=== PATIENT | male | born 1995 | race Caucasian/White ===

== ENCOUNTER 2016-08-04 18:29 | Inpatient (IN) | payer BC, OTHER ==
[~2016-08-04] VITALS: Ht 185.4 cm; Wt 65.8 kg
[2016-08-10] MEDS ORDERED: MIRALAX 17 GM POWD.PACK PO PRN (17:30)
[2016-08-10] MEDS ORDERED: DIAZEPAM 10 MG TABLET PO PRN ×2 (17:30)
[2016-08-10] MEDS ORDERED: CLONIDINE HCL 0.1 MG TABLET PO PRN (17:30)
[2016-08-10] MEDS ORDERED: diphenhydrAMINE 50 MG CAPSULE PO PRN (17:30)
[2016-08-10] MEDS ORDERED: DIAZEPAM 5 MG TABLET PO PRN (17:30)
[2016-08-10] MEDS ORDERED: ACETAMINOPHEN 325 MG TABLET PO PRN (17:30)
[2016-08-10] MEDS ORDERED: LOPERAMIDE HCL 2 MG CAPSULE PO PRN ×2 (17:30)
[2016-08-10] MEDS ORDERED: DICYCLOMINE HCL 20 MG TABLET PO PRN (17:30)
[2016-08-10] MEDS ORDERED: ONDANSETRON ODT 4 MG TAB.RAPDIS SL PRN (17:30)
[2016-08-10] MEDS ORDERED: MAGNESIUM HYDROXIDE 30 ML LIQUID UDC PO PRN (17:30)
[2016-08-10] MEDS ORDERED: ONDANSETRON 4 MG/2 ML VIAL IM PRN (17:30)
[2016-08-10] MEDS ORDERED: BUPRENORPHINE HCL 2 MG TAB.SUBL SL PRN (17:30)
[2016-08-10] MEDS ORDERED: MAG HYDROX/AL HYDROX/SIMETH 30 ML LIQUID UDC PO PRN (17:30)
[2016-08-10] MEDS ORDERED: IBUPROFEN 600 MG TABLET PO PRN (17:30)
[2016-08-10] MEDS ORDERED: METHOCARBAMOL 750 MG TABLET PO PRN (17:30)
[2016-08-10] MEDS ORDERED: LORAZEPAM 2 MG/1 ML VIAL IM PRN (17:30)
[2016-08-10] MEDS ORDERED: HYDROXYZINE PAMOATE 25 MG CAPSULE PO PRN (17:30)
[2016-08-10 18:30] VITALS: BP 131/93
--- NOTE | 2016-08-10 18:30 | NUR ---
Admission Note Pt is a 20 year old male admitted to [facility] on 08/10/2016 for Opiate/Benzo dependence, arrived on the unit at 1830. NKA, denies history of seizures. Pt was able to provide urine drug scree. Upon admission, COWS 5, CIWA 3, BP 131/93, pulse 107, respirations 16, temp 97.4, no reports of pain - rated 0/10, weight 145, height 6'1''. Pt's primary care provider is Dr. Zane Salinas in [place]. Pt denies being hospitalized within the past 30 days. Pt is able to understand and respond to all questions pertaining to his hospitalization. Substance Abuse History is as Follows: 1. Percocet 40mg/daily, last intake on 08/08/2016 of 30mg, at this rate for 3 months, pt has been using since age 16 - for 4 years 2. Hydrocodone 40-100mg/daily, last intake on 08/08/2016 of 50mg, at this rate for 3 months, pt has been using since age 16 - for 4 years 3. Klonopin 1-2mg/daily, last intake on 08/10/2016 of 2mg, at this rate for 3 months, pt has been using since age 16 - for 4 years 4. Xanax 2-4mg/every other day, last intake on 08/08/2016 of 2mg, at this rate for the past year, pt has been using since age 16 - for 4 years 5. Methamphetamine (nasal/smoke) 0.2 - 0.3mg/daily, last intake on 08/09/2016 of 0.2mg, using at this rate for the past 3 months. Pt reports using for the past year 6. Marijuana via smoke - 0.5 - 1g/weekly, last intake of 1gram on 08/07/2016, pt has been using marijuana since age 16. Pt reports his trigger to use is d/t feeling frustrated and irritated with his parents and friends. Pts longest sober period was 7 months in 2016, as reported by pt. Treatment history: [facility] in [place], [place] in 2014 for 7-8 months. Pt reports his father was an alcoholic - is now in recovery and history brother in 2002 d/t driving while intoxicated. Pt stated he is in treatment because, "I want to get clean and live independently". PMH: ADD, anxiety and depression. Pt denies any sx history. Pt did not bring any medications from. Upon assessment, pt is alert/oriented x4, anxious, reports mild body aches, is fidgety, respirations even and unlabored, denies SOB/chest pain, PERRLA. Skin is noted with sweat/clammy, bowel sounds active x4, abdomen soft. Pt denies suicidal ideations. Educational information provided and left at bedside, pt oriented to room and encouraged to notify staff with any concerns. Safety measures in place, call light within reach, side rails up x2, bed locked and in low position. Will continue to monitor.
[2016-08-10 19:05] LABS: BASOPHILS # (AUTO) 0.1 K/uL (0.0-8.0); BASOPHILS % (AUTO) 0.9 % (0.0-2.0); EOSINOPHILS # (AUTO) 0.5 K/uL (0.0-0.7); EOSINOPHILS % (AUTO) 6.7 % (0.0-7.0); HEMATOCRIT 44.3 % (36.7-47.1); HEMOGLOBIN 15.1 g/dL (12.5-16.3); LYMPHOCYTES # (AUTO) 2.6 K/uL (20.0-40.0); LYMPHOCYTES % (AUTO) 38.5 % (20.5-51.5); MEAN CORPUSCULAR HEMOGLOBIN 31.4 uug (23.8-33.4); MEAN CORPUSCULAR HGB CONC 34 g/dL (32.5-36.3); MEAN CORPUSCULAR VOLUME 91.9 fL (73.0-96.2); MONOCYTES # (AUTO) 0.4 K/uL (2.0-10.0); MONOCYTES % (AUTO) 6.1 % (0.0-11.0); NEUTROPHILS # (AUTO) 3.2 K/uL (1.8-8.9); NEUTROPHILS % (AUTO) 47.8 % (38.5-71.5); PLATELET COUNT (AUTO) 208 K/uL (152-348); RED BLOOD CELL COUNT(AUTO) 4.82 MIL/uL (4.06-5.63); RED CELL DISTRIBUTION WIDTH 12.1 % (12.1-16.2); WHITE BLOOD COUNT (AUTO) 6.9 K/uL (3.6-10.2)
[2016-08-10 19:19] LABS: ALANINE AMINOTRANSFERASE 24 U/L (16-63); ALBUMIN 4.4 g/dL (3.4-5.0); ALKALINE PHOSPHATASE 92 U/L (50-136); AMYLASE 67 U/L (25-115); ASPARTATE AMINOTRANSFERASE 18 U/L (15-37); BILIRUBIN,TOTAL 0.4 mg/dL (0.2-1.0); CARBON DIOXIDE 32 mmol/L (21-32); CHLORIDE 103 mmol/L (98-107); CREATININE 1.1 mg/dL (0.6-1.3); GFR 84 mL/min (>60); GLUCOSE 88 mg/dL (74-106); LIPASE 354 U/L (73-393); MAGNESIUM 2.3 mg/dL (1.8-2.4); POTASSIUM 4.1 mmol/L (3.5-5.1); SODIUM SERUM 141 mmol/L (136-145); TOTAL PROTEIN, SERUM 7.6 g/dL (6.4-8.2); UREA NITROGEN, BLOOD 18 mg/dL (7-18)
[2016-08-10 19:21] LABS: ETHANOL < 3 MG/DL (0-0)
[2016-08-10 19:23] LABS: *AMPHETAMINE, URINE POSITIVE (NEGATIVE); *BARBITURATE, URINE NEGATIVE (NEGATIVE); *CANNABINOID, URINE NEGATIVE (NEGATIVE); *COCCAINE, URINE NEGATIVE (NEGATIVE); *OPIATE, URINE NEGATIVE (NEGATIVE); *PHENCYCLIDINE SCREEN,URINE NEGATIVE (NEGATIVE)
[2016-08-10 19:41] LABS: THYROID STIMULATING HORMONE 1.651 mIU/mL (0.358-3.740)
[2016-08-10 19:43] LABS: HIV-1/2 ANTIBODY NON REACTIVE (NONREACTIVE)
[2016-08-10 19:44] LABS: HIV-1 p24 ANTIGEN NON REACTIVE (NONREACTIVE)
[2016-08-10 20:00] VITALS: BP 133/80
[2016-08-10] MEDS: GABAPENTIN 300 MG CAPSULE PO SCH (20:14)
[2016-08-11] VITALS: BP 119/69
--- NOTE | 2016-08-11 | NUR ---
Vital Signs BP 119/69, pulse 95, respirations 12, SpO2 99%, temp 97.5, no reports of pain 0/10 CIWA/COWS deferred d/t pt sleeping - to assess while pt is awake as ordered. Safety measures in place. Will continue to monitor.
--- NOTE | 2016-08-11 04:00 | NUR ---
Pt refused to be woken up for 0400 Vital Signs Encouraged x3, pt continued to refuse. Respirations even and unlabored, no s/s of acute distress noted. HEATHER burdickred d/t pt sleeping - to assess while pt is awake as ordered. Safety measures in place. Will continue to monitor. Addendum: 08/11/16 at 0541 by FABIOLA JAIME RN WENDIE deferred d/t pt sleeping - to assess while pt is awake as ordered.
--- NOTE | 2016-08-11 07:00 | NUR ---
End of Shift Pt is a 20 year old male admitted for Opioid/Benzo dependence, placed on 4 day Valium and 4 day Subutex taper. PMH: ADD, anxiety and depression. NKA, regular diet, fall/seizure precautions - denies hx of seizures and full code. During shift, pt presented with body aches, skin flushed - scheduled Gabapentin administered. No PRNs administered. Pt slept all throughout shift. COWS 5, CIWA 3. Pt is to begin taper treatment today. Pt slept for 8 hours intake of 500 ml PO and voids x1. Safety measures in place, call light within reach, side rails up x2, bed locked and in low position. Endorsed to day shift nurse.
--- NOTE | 2016-08-11 07:40 | NUR ---
Start Of Shift Received Pt A&Ox4 this am. Pt is on a 4 day Valium and a 4 day Subutex taper. Pt states he is feeling anxious stating I feel dope sick pt presented with proximal sweats, a mild headache, flushed face, and nasal stuffiness. RR even and unlabored at 17. Pt did not receive any PRN medications last night per shift leader nurse. Pt slept a total of 8 hours. Last COWS 5 and CIWA 3 per shift leader. Encouraged increase fluids to help facilitate detox. Pt continues to be on fall and seizure precautions. Pt denies any allergies. Side rails up x 2, call light within reach, bed locked in lowest position, will continue to monitor and provide care.
[2016-08-11 08:00] VITALS: BP 118/78
[2016-08-11] MEDS: DIAZEPAM 10 MG TABLET PO SCH ×3 (08:49→21:07)
[2016-08-11] MEDS: GABAPENTIN 300 MG CAPSULE PO SCH ×2 (08:49→21:07)
[2016-08-11] MEDS: BUPRENORPHINE HCL 2 MG TAB.SUBL SL SCH ×3 (08:49→21:09)
[2016-08-11] MEDS: MULTIVITAMINS,THERAPEUTIC TABLET PO SCH (08:49)
[2016-08-11] MEDS ORDERED: TUBERCULIN,PURIF.PROT.DERIV. 5 TU/0.1 ML TEST ID ONE (09:00)
[2016-08-11 12:00] VITALS: BP 124/80
[2016-08-11 16:00] VITALS: BP 129/77
--- NOTE | 2016-08-11 19:07 | NUR ---
End Of Shift Pt is a 20 year old male admitted for Opiate and Benzo dependency. Full code regular diet continues to be on fall and seizure precautions, denies any food or drug allergies. Patient alert and oriented x4, vital signs were stable during shift. Patient compliant with therapeutic plan of care. Patient continues on 5 day Subutex and 5 day Valium taper as ordered, well tolerated, no ASE noted. Patient encouraged adequate PO fluid intake as tolerated. Upon assessment patient presented with c/o chills, dilated pupils, stomach cramps, mild anxiety, mild agitation and barely sweating with his last COWS score of: 5 and CIWA score of: 3 @1600. Detox medication effective at reducing withdrawal symptoms. Patient encouraged to attend group therapies/sessions to learn new coping skills to recent relapse, noted attending and participating, patient denies SI/HI. Pt ate all of his meals his total fluid intake was 0 with 2 void and 0 bowel movement ,no PRN medications were administered during shift. Safety measures in place. Call light kept within reach. Patient endorsed to overnight caregiver nurse, all pertinent information discussed.
[2016-08-11 20:00] VITALS: BP 115/62
--- NOTE | 2016-08-11 20:00 | NUR ---
Start of Shift Pt is a 20 year old male admitted for Opioid/Benzo dependence, placed on 4 day Valium and 4 day Subutex taper. PMH: ADD, anxiety and depression. NKA, regular diet, fall/seizure precautions - denies hx of seizures and full code. Upon assessment, pt presents with a flushed face - moderate sweat noted/skin clammy upon touch, tremors felt upon touch, pt reports lower back ache and aches in lower legs, respirations even and unlabored, denies SOB/chest pain, denies SI/HI. Safety measures in place, call light within reach, side rails up x2, bed locked and in low position. Will continue to monitor.
[2016-08-12] VITALS: BP 104/59
--- NOTE | 2016-08-12 | NUR ---
Vital Signs BP 104/59, pulse 95, respirations 16, SpO2 96%, temp 97.7, no reports of pain 0/10 CIWA/COWS deferred d/t pt sleeping - to assess while pt is awake as ordered. Safety measures in place. Will continue to monitor.
[2016-08-12 04:00] VITALS: BP 96/61
--- NOTE | 2016-08-12 04:00 | NUR ---
Vital Signs BP 96/61, pulse 104, respirations 16, SpO2 99%, temp 97.8, no reports of pain 0/10 CIWA/COWS deferred d/t pt sleeping - to assess while pt is awake as ordered. Safety measures in place. Will continue to monitor.
--- NOTE | 2016-08-12 07:00 | NUR ---
End of Shift Pt is a 20 year old male admitted for Opioid/Benzo dependence, placed on 4 day Valium and 4 day Subutex taper. PMH: ADD, anxiety and depression. NKA, regular diet, fall/seizure precautions - denies hx of seizures and full code. During shift, pt presented with flushed face - moderate sweat noted/skin clammy upon touch, tremors felt upon touch, pt reports lower back ache and aches in lower legs - scheduled taper medications administered, CIWA 4 and COWS 5. No PRN medications administered. Pt slept for 9 hours, intake of 1350 ml PO and voids x1. Safety measures in place, call light within reach, side rails up x2, bed locked and in low poisiton. Endorsed to day shift nurse.
[2016-08-12 08:00] VITALS: BP 113/74
--- NOTE | 2016-08-12 08:09 | NUR ---
START OF SHIFT NOTE Received report from night nurse, 20 year old male admitted for Opioid/Benzo dependence. NKA, regular diet and full code. Pt was placed on 4 day Valium and 4 day Subutex taper. Pt reported PMH ADD, anxiety and depression, Pt denies history of seizures. Pt did not receive any PRN's, slept for 9 hours, Last CIWA-4, COWS-5. Upon assessment, pt presents with mild anxiety, tremors felt upon touch, denies any pain or SOB/chest pain, denies SI/HI. Fall/seizure precautions. Safety measures in place, call light within reach, side rails up x2, bed locked and in low position. Will continue to monitor.
[2016-08-12] MEDS: GABAPENTIN 300 MG CAPSULE PO SCH ×3 (08:52→20:07)
[2016-08-12] MEDS: DIAZEPAM 5 MG TABLET PO SCH ×3 (08:52→16:31)
[2016-08-12] MEDS: MULTIVITAMINS,THERAPEUTIC TABLET PO SCH (08:53)
[2016-08-12] MEDS ORDERED: BUPRENORPHINE HCL 2 MG TAB.SUBL SL SCH ×2 (09:00→15:00)
--- NOTE | 2016-08-12 10:49 | NUR ---
PRN ZOFRAN/BENTYL Pt c/o of nausea, and stomach cramps, non pharmacological intervention ineffective. Pt medicated with PRN Zofran 4mg SL/Bentyl as ordered. Will cont to monitor and reassess the pt.
--- NOTE | 2016-08-12 11:19 | NUR ---
PRN ZOFRAN Pt c/o of nausea, non pharmacological intervention ineffective. Pt medicated with PRN Zofran 4mg SL as ordered. Will cont to monitor and reassess the pt. Addendum: 08/12/16 at 1515 by TOVA DOMÍNGUEZ LVN ERROR -Pt did not receive second dose
--- NOTE | 2016-08-12 11:19 | NUR ---
REASSESSMENT Upon reassessment pt reported medication effective nausea subside.
--- NOTE | 2016-08-12 11:49 | NUR ---
CLAUDY REASSESSMENT Pt reported medication effective and stomach cramps decreased.
[2016-08-12 12:00] VITALS: BP 121/78
[2016-08-12 14:12] LABS: HCV AB <0.1 s/co ratio (0.0-0.9); HEPATITIS B CORE AB, IgM Negative (Negative); HEPATITIS B SURFACE AG Negative (Negative)
[2016-08-12] MEDS: BACLOFEN 10 MG TABLET PO SCH ×2 (14:29→20:07)
[2016-08-12] MEDS: DICYCLOMINE HCL 20 MG TABLET PO SCH ×2 (14:29→20:07)
[2016-08-12] MEDS: BUPRENORPHINE HCL 2 MG TAB.SUBL SL SCH ×2 (14:29→20:08)
[2016-08-12 16:00] VITALS: BP 127/84
--- NOTE | 2016-08-12 16:36 | NUR ---
PRN MOTRIN Pt c/o of headache 07/27, non pharmacological intervention ineffective. Administered PRN Motrin 600mg as ordered. Will cont to monitor and reassess the pt.
--- NOTE | 2016-08-12 17:36 | NUR ---
REASSESSMENT Pt reported medication effective, headache subside to 04/28.
--- NOTE | 2016-08-12 18:53 | NUR ---
END OF SHIFT NOTE Gave report to night nurse, 20 year old male admitted for Opiate and Benzo dependence. Full code regular diet, NKA. Pt cont on 5 day Subutex and 5 day Valium taper as ordered, well tolerated, no ASE noted. During shift pt received PRN Zofran/Bentyl/Motrin effective. Vital signs were stable during shift. Vital signs remained stable. Last CIWA-5, COWS-5.Encouraged Po fluids as tolerated. Pt's total intake 946ml, Voidedx1. Safety measures in place, call light within reach.Will endorse pt to night nurse in stable condition.
--- NOTE | 2016-08-12 19:30 | NUR ---
START OF SHIFT NOTE Pt is a 20 y/o male admitted for Percocet, Hydrocodone, Klonopin, Xanax, Meth, and Marijuana dependence and use. Pt has NKA but reported a PMH of anxiety, depression, and ADD. Per day shift nurse pt was placed on a 4 day Valium and Subutex taper and is tolerating medication well, with no s/e or a/r reported. Pt received Bentyl PO PRN, Zofran ODT PRN, and Motrin PO PRN during the day shift. Last COW: 5 and CIWA: 5 (1600). At this time pt is asleep in bed with no signs of discomfort/distress noted. Breathing is even and unlabored. All safety measures in place. Will continue to monitor.
[2016-08-12 20:00] VITALS: BP 114/82
[2016-08-12] MEDS ORDERED: DIAZEPAM 10 MG TABLET PO SCH (21:00)
--- NOTE | 2016-08-13 | NUR ---
COW,CIWA, AND VITALS REFUSED Pt refused to be assessed and have vitals taken at this time. Pt was encouraged x 3 with risks and benefits explained, but the pt still refused. All safety measures in place. Will continue to monitor. Addendum: 08/13/16 at 0522 by SHANON MAGDALENO LVN Amended: Links added.
[2016-08-13 04:00] VITALS: BP 133/88
--- NOTE | 2016-08-13 07:34 | NUR ---
END OF SHIFT NOTE Pt is a 20 y/o male admitted for Percocet, Hydrocodone, Klonopin, Xanax, Meth, and Marijuana dependence and use. Pt has NKA but reported a PMH of anxiety, depression, and ADD. Pt continues on a 4 day Valium and Subutex taper and is tolerating medication well, with no s/e or a/r reported. Pt didn't receive any PRNS during the shift. Last COW: 1 and CIWA: 0 (0400). At this time pt is asleep in bed with no signs of discomfort/distress noted. Breathing is even and unlabored. All safety measures in place. Endorsed to the oncoming nurse..
[2016-08-13 08:00] VITALS: BP 137/88
--- NOTE | 2016-08-13 08:00 | NUR ---
Start of Shift Pt is a 20 year old male admitted for Opioid/Benzo dependence, placed on 4 day Valium and 4 day Subutex taper. PMH: ADD, anxiety and depression. NKA, regular diet, fall/seizure precautions - denies hx of seizures and full code. Upon assessment, pt is sleeping, arousable, noted moderate sweat noted/skin clammy upon touch, pt reports lower back aches, respirations even and unlabored, denies SOB/chest pain, denies SI/HI. Pt returned back to sleep. Safety measures in place, call light within reach, side rails up x2, bed locked and in low position. Will continue to monitor.
[2016-08-13] MEDS ORDERED: BUPRENORPHINE HCL 2 MG TAB.SUBL SL SCH ×2 (09:00)
[2016-08-13] MEDS: DIAZEPAM 5 MG TABLET PO SCH ×4 (09:00→21:52)
[2016-08-13] MEDS ORDERED: DIAZEPAM 5 MG TABLET PO SCH (09:00)
--- NOTE | 2016-08-13 09:00 | NUR ---
Nursing Notes 0900 dose of Subutex 4mg and Valium 5mg held. Pt stated, "I don't want all of my meds, I feel sleepy". Pt returned back to sleep. Safety measures in place, Will continue to monitor.
[2016-08-13] MEDS: MULTIVITAMINS,THERAPEUTIC TABLET PO SCH (09:15)
[2016-08-13] MEDS: DICYCLOMINE HCL 20 MG TABLET PO SCH ×3 (09:15→21:51)
[2016-08-13] MEDS: BACLOFEN 10 MG TABLET PO SCH ×2 (09:15→15:00)
[2016-08-13] MEDS: GABAPENTIN 300 MG CAPSULE PO SCH ×3 (09:15→21:51)
[2016-08-13 12:00] VITALS: BP 133/80
[2016-08-13] MEDS: BUPRENORPHINE HCL 2 MG TAB.SUBL SL SCH ×2 (15:00→21:00)
[2016-08-13 16:00] VITALS: BP 109/82
--- NOTE | 2016-08-13 17:00 | NUR ---
Nursing Note 1300 dose, 1500 dose, 1700 dose of scheduled medications held d/t pt sedated. Pt is arousable, reports, "I just want to sleep". respirations even/unlabored. Safety measures in place, Will continue to monitor. MD aware.
--- NOTE | 2016-08-13 19:00 | NUR ---
End of Shift Pt is a 20 year old male admitted for Opioid/Benzo dependence, placed on 4 day Valium and 4 day Subutex taper. PMH: ADD, anxiety and depression. NKA, regular diet, fall/seizure precautions - denies hx of seizures and full code. During shift, 0800 dose, 1300 dose, 1500 dose, 1700 dose of scheduled medications held d/t pt sedated. No PRN medications administered during shift. COWS 1 and CIWA 1 at 1600. Respirations even/unlabored, pt slept all throughout shift. Intake of 500 ml PO, with voids x1. Safety measures in place, call light within reach, side rails up x2, bed locked and in low position. Endorsed to cupola tender nurse.
[2016-08-13 20:00] VITALS: BP 107/74
--- NOTE | 2016-08-13 20:15 | NUR ---
START OF SHIFT NOTE Pt is a 20 y/o male admitted for Percocet, Hydrocodone, Klonopin, Xanax, Meth, and Marijuana dependence and use. Pt has NKA but reported a PMH of anxiety, depression, and ADD. Per day shift nurse pt continues on a 4 day Valium and Subutex taper and was notably sedated through out the day . Day shift nurse reported holding taper medication. Pt didn't receive any PRNS during the day shift. Last COW: 1 and CIWA: 1 (1600). At this time pt is asleep in bed with no signs of discomfort/distress noted. Pt is arousable by voice and light touch. Pt stated " I feel so sleepy. I have some anxiety too. It's not to the point where I feel like I'm going to jump up and run out the building, but I am anxious." Pt denies any other discomfort/pain. Pt was encouraged to notify staff of any changes in condition or of any concerns. Pt verbalized an understanding. All safety measures in place. Will continue to monitor.
[2016-08-14] VITALS: BP 112/72
[2016-08-14 04:00] VITALS: BP 113/73
--- NOTE | 2016-08-14 07:29 | NUR ---
END OF SHIFT NOTE Pt is a 20 y/o male admitted for Percocet, Hydrocodone, Klonopin, Xanax, Meth, and Marijuana dependence and use. Pt has NKA but reported a PMH of anxiety, depression, and ADD. Pt continues on a 4 day Valium and Subutex taper. Pt refused his Subutex 2 mg PO at 2100 d/t being too sedated, but received his Valium 5 mg PO along with his other medications because he voiced he had anxiety. No PRNS were given during the shift. Last COW: 0 and CIWA: 0 (0400). Pt slept for a total of 9 hours. All safety measures in place. Endorsed to the oncoming nurse.
[2016-08-14] MEDS: GABAPENTIN 300 MG CAPSULE PO SCH ×3 (08:38→20:54)
[2016-08-14] MEDS: DICYCLOMINE HCL 20 MG TABLET PO SCH ×3 (08:38→20:54)
[2016-08-14] MEDS: MULTIVITAMINS,THERAPEUTIC TABLET PO SCH (08:38)
[2016-08-14] MEDS: BUPRENORPHINE HCL 2 MG TAB.SUBL SL SCH ×3 (08:39→20:54)
[2016-08-14] MEDS: DIAZEPAM 5 MG TABLET PO SCH ×2 (08:46→20:54)
[2016-08-14 08:49] VITALS: BP 111/73
[2016-08-14] MEDS ORDERED: BUPRENORPHINE HCL 2 MG TAB.SUBL SL SCH (09:00)
[2016-08-14] MEDS ORDERED: DIAZEPAM 5 MG TABLET PO SCH ×2 (09:00)
[2016-08-14 12:50] VITALS: BP 113/66
[2016-08-14] MEDS ORDERED: METHYL SALICYLATE/MENTHOL CREAM 28 GM TUBE TOP PRN (14:45)
[2016-08-14 16:55] VITALS: BP 116/70
--- NOTE | 2016-08-14 19:10 | NUR ---
Start of Shift Patient Received. Patient is in his room, awake, alert and verbally responsive. Breathing even and non labored. No signs of pain or discomfort noted. Patient is a 20 year old male, admitted on 08/10/16 for Opioid and Benzo Dependence, under the care of Dr. Diaz. Patient is currently receiving a modified Valium Taper as well as a modified Subutex taper. Patient verbalizes no known allergies; wishes to be full code, following a regular diet, skin intact, placed on fall and seizure precautions. No history of seizures noted. Past medical history of Anxiety, Depression, and ADD. Per endorsement, patient was given PRN Robaxin and noted to not be effective with new order per Dr. Diaz of Toradol IM. Medication Administered and noted to be effective. At 1600 COWS noted 4 and CIWA noted 4. All needs attended to promptly. Will continue plan of care as ordered.
--- NOTE | 2016-08-14 19:36 | NUR ---
END OF SHIFT: Client continues on 4 day Subutex/ 4 day Valium taper, for management of his withdrawal symptoms. He is in room, A/O X4, reports anxiety, chills, and fatigue, he denies any N/V/D. Last COWS 4/ CIWA 4. He is compliant with group therapy. Adequate intake 2250mL void x 3. Client is on seizure precautions. Side rails X 2 up/padded, call light within reach, bed locked in lowest positions. Endorsed to incoming nurse
[2016-08-14 20:52] VITALS: BP 106/68
[2016-08-15 00:18] VITALS: BP 122/66
[2016-08-15 04:45] VITALS: BP 110/55
--- NOTE | 2016-08-15 07:08 | NUR ---
End of Shift Patient is in bed sleeping. Breathing even and non labored. No signs of pain or discomfort noted. Patient is a 20 year old male, admitted on 08/10/16 for Opioid and Benzo Dependence, under the care of Dr. Diaz. Patient is currently receiving a modified Valium Taper as well as a modified Subutex taper. Patient verbalizes no known allergies; full code, following a regular diet, skin intact, fall and seizure precautions. No history of seizures noted. Past medical history of Anxiety, Depression, and ADD. No PRN Medications administered. All needs attended to promptly. Will endorse to continue plan of care as ordered.
--- NOTE | 2016-08-15 07:35 | NUR ---
START OF SHIFT Rcvd client in room, he is A/O x 4, he presents with depressed mood, flat affect, he reports chills, fatigue, no appetite, lower back aches, he denies N/V/D. He denies DI/HI. Encouraged increased fluid intake and activity as tolerated. Encouraged group therapy attendance. Per night stocker nurse, Client is a 20 year old male admitted for Opioid/Benzodiazepine withdrawal, placed on modified 5 day Valium and 5 day Subutex taper. NKA, regular diet, seizure precautions - denies hx of seizures and full code. Safety measures in place, call light within reach, side rails up x2/padded, bed locked and in low position. Will continue to monitor.
[2016-08-15] MEDS: GABAPENTIN 300 MG CAPSULE PO SCH ×3 (08:21→21:38)
[2016-08-15] MEDS: DICYCLOMINE HCL 20 MG TABLET PO SCH ×3 (08:21→21:38)
[2016-08-15] MEDS: MULTIVITAMINS,THERAPEUTIC TABLET PO SCH (08:21)
[2016-08-15] MEDS: BUPRENORPHINE HCL 2 MG TAB.SUBL SL SCH ×2 (08:23→21:38)
--- NOTE | 2016-08-15 08:24 | NUR ---
PRN Jose-Lainez Ultra Cream Client reports muscle pain posterior neck/spine /10, administered above med. Will continue to monitor. Call light within reach.
[2016-08-15 08:28] VITALS: BP 113/75
[2016-08-15] MEDS ORDERED: DIAZEPAM 2 MG TABLET PO SCH (09:00)
[2016-08-15] MEDS ORDERED: DIAZEPAM 5 MG TABLET PO SCH (09:00)
[2016-08-15] MEDS ORDERED: BUPRENORPHINE HCL 2 MG TAB.SUBL SL SCH (09:00)
--- NOTE | 2016-08-15 09:24 | NUR ---
Reassessment PRN Jose-Lainez Ultra Cream Client reports relief from muscle pain @ posterior neck/spine 0. Call light within reach.
[2016-08-15 13:00] VITALS: BP 108/56
[2016-08-15 16:50] VITALS: BP 116/72
--- NOTE | 2016-08-15 19:05 | NUR ---
END OF SHIFT: Client continues on modified 5 day Subutex/ 5 day Valium taper, for management of his withdrawal symptoms. He is in room, A/O X4, reports anxiety and fatigue, denies any N/V/D. Last COWS 5/ CIWA 5. PRN Jose-Lainez Ultra Cream to neck/spine muscle pain, noted effective. He is compliant with group therapy. Adequate intake 1500mL, void x 2, stool x 1. Client is on seizure precautions. Side rails X 2 up/padded, call light within reach, bed locked in lowest positions. Endorsed to incoming nurse
--- NOTE | 2016-08-15 19:15 | NUR ---
Start of Shift Patient Received. Patient is in the activity room participating in group activities. Patient is a 20 year old male, admitted on 08/10/16 for Opioid and Benzo Dependence, under the care of Dr. Diaz. Patient is currently receiving a modified Valium Taper as well as a modified Subutex taper. Patient verbalizes no known allergies; wishes to be full code, following a regular diet, skin intact, placed on fall and seizure precautions. No history of seizures noted. Past medical history of Anxiety, Depression, and ADD. Per endorsement, patient was given PRN Bengay topically for increased pain of 5/10 and medication noted to be effective. At 1600 COWS noted 5 and CIWA noted 5. All needs attended to promptly. Will continue plan of care as ordered.
[2016-08-15 21:36] VITALS: BP 128/64
[2016-08-16 00:25] VITALS: BP 101/53
[2016-08-16 04:57] VITALS: BP 107/68
[2016-08-16 05:06] LABS: *AMPHETAMINE Positive (.); *METHAMPHETAMINE Positive (.)
--- NOTE | 2016-08-16 07:43 | NUR ---
START OF SHIFT Rcvd client in room, he is A/O x 4, he presents with guarded affect and depressed mood, He states "I feel tired , did not sleep well." He reports fatigue, chills. Noted skin clammy to touch. He denies N/V/D. He denies DI/HI. Encouraged increased fluid intake and activity as tolerated. Per cage shift manager nurse,he was admitted for Opioid/Benzodiazepine withdrawal, today @ 0900 last dose of modified 5 day Valium and 5 day Subutex taper. He had an uneventful night, slept 5 hrs. Last COWS 2/CIWA 0 @ 0400. NKA, regular diet, seizure precautions - denies hx of seizures and full code. Safety measures in place, call light within reach, side rails up x2/padded, bed locked and in low position. Will continue to monitor.
[2016-08-16] MEDS ORDERED: BUPRENORPHINE HCL 2 MG TAB.SUBL SL SCH (09:00)
[2016-08-16] MEDS: MULTIVITAMINS,THERAPEUTIC TABLET PO SCH (09:15)
[2016-08-16] MEDS: DICYCLOMINE HCL 20 MG TABLET PO SCH ×2 (09:15→14:41)
[2016-08-16] MEDS: GABAPENTIN 300 MG CAPSULE PO SCH ×3 (09:15→21:30)
[2016-08-16 09:16] VITALS: BP 101/74
[2016-08-16 12:00] VITALS: BP 110/79
[2016-08-16 16:00] VITALS: BP 126/74
[2016-08-16] MEDS ORDERED: DICYCLOMINE HCL 20 MG TABLET PO PRN (18:00)
[2016-08-16] MEDS ORDERED: METH-33 PO (18:24)
[2016-08-16] MEDS ORDERED: Gabapentin PO (18:24)
[2016-08-16] MEDS ORDERED: DIPH50CA37 PO (18:24)
[2016-08-16] MEDS ORDERED: HYDR-3895 PO (18:24)
[2016-08-16] MEDS ORDERED: DICY20TA28 PO (18:24)
[2016-08-16] MEDS ORDERED: Ibuprofen PO (18:24)
--- NOTE | 2016-08-16 19:00 | NUR ---
END OF SHIFT: Client completed a modified 5 day Subutex/ 5 day Valium taper, for management of withdrawal symptoms. He is in room, A/O X4, reports some anxiety and fatigue, denies any N/V/D. Last COWS 3/ CIWA 3. He is compliant with group therapy. Adequate intake 1460mL, void x 3. Client is on seizure precautions. Side rails X 2 up/padded, call light within reach, bed locked in lowest positions. Endorsed to incoming nurse
--- NOTE | 2016-08-16 19:15 | NUR ---
Start of Shift Patient Received. Patient is in bed sleeping, but easily arousable to verbal stimuli. Breathing even and non labored. No signs of pain or discomfort noted. Patient is a 20 year old male, admitted on 08/10/16 for Opioid and Benzo Dependence, under the care of Dr. Diaz. Patient is currently receiving a modified Valium Taper as well as a modified Subutex taper. Patient verbalizes no known allergies; wishes to be full code, following a regular diet, skin intact, placed on fall and seizure precautions. No history of seizures noted. Past medical history of Anxiety, Depression, and ADD. Per endorsement, patient is set for discharge tomorrow 08/17/16 to [facility]. At 1600 COWS noted 3 and CIWA noted 3. All needs attended to promptly. Will continue plan of care as ordered.
[2016-08-16 21:27] VITALS: BP 117/70
[2016-08-16 21:31] LABS: *AMPHETAMINE, URINE NEGATIVE (NEGATIVE); *BARBITURATE, URINE NEGATIVE (NEGATIVE); *CANNABINOID, URINE NEGATIVE (NEGATIVE); *COCCAINE, URINE NEGATIVE (NEGATIVE); *OPIATE, URINE NEGATIVE (NEGATIVE); *PHENCYCLIDINE SCREEN,URINE NEGATIVE (NEGATIVE)
[2016-08-17 00:25] VITALS: BP 105/63
[2016-08-17 04:13] VITALS: BP 107/69
--- NOTE | 2016-08-17 07:20 | NUR ---
End of Shift Patient is in bed sleeping. Breathing even and non labored. No signs of pain or discomfort noted. Patient is a 20 year old male, admitted on 08/10/16 for Opioid and Benzo Dependence, under the care of Dr. Diaz. Patient is currently receiving a modified Valium Taper as well as a modified Subutex taper. Patient verbalizes no known allergies; full code, following a regular diet, skin intact, fall and seizure precautions. No history of seizures noted. Past medical history of Anxiety, Depression, and ADD. No PRN Medications administered. Patient is set for discharge today 08/17/16 to [facility]. All needs attended to promptly. Will endorse to continue plan of care as ordered.
--- NOTE | 2016-08-17 07:30 | NUR ---
start of shift note: received pt from slot shift manager nurse, pt is in stable condition at this time no s/s of pain or discomfort. pt is admitted to [facility] for opiate/benzo/meth withdrawal/dependence. pt is set to discharge today will assist pt in discharging and will continue to monitor pt for any changes.
[2016-08-17] MEDS: GABAPENTIN 300 MG CAPSULE PO SCH (09:07)
[2016-08-17] MEDS: MULTIVITAMINS,THERAPEUTIC TABLET PO SCH (09:07)
--- NOTE | 2016-08-17 09:25 | NUR ---
discharge note: pt left our unit in stable condition no s/s of pain or discomfort, or any withdrawal symptoms. pt teaching was administered and pt verbalized understanding. all personal belongings were returned. pt's V/S WNL. patient will be transferred to [facility] via private car
== END 2016-08-17 09:25 | disposition other institution (70) | DRG 895 ==
LOC: SRC 08-10 17:10
PROVIDERS: ADMIT Internal Medicine; ATTEND Internal Medicine
PROC: HZ2ZZZZ Detoxification Services for Substance Abuse Treatment (ICD-10-PCS; principal; 2016-08-10)
PROC: HZ41ZZZ Group Counseling for Substance Abuse Treatment, Behavioral (ICD-10-PCS; 2016-08-11)
PROC: HZ31ZZZ Individual Counseling for Substance Abuse Treatment, Behavioral (ICD-10-PCS; 2016-08-13)
DX: F11.23 Opioid dependence with withdrawal (principal); F10.10 Alcohol abuse, uncomplicated; Y90.9 Presence of alcohol in blood, level not specified; Z82.49 Family history of ischemic heart disease and other diseases of the circulatory system; Z81.1 Family history of alcohol abuse and dependence; F17.210 Nicotine dependence, cigarettes, uncomplicated; G47.00 Insomnia, unspecified; F13.239 Sedative, hypnotic or anxiolytic dependence with withdrawal, unspecified; F41.0 Panic disorder [episodic paroxysmal anxiety]; F12.10 Cannabis abuse, uncomplicated; F32.9 Major depressive disorder, single episode, unspecified
CPT/HCPCS: 36415; 70030-TC; 80307; 80324; 83690; 83735; 84443; 85025; 86580; 86592; 86705; 86803; 87340; 87806; G6040-TC; Q0162